=== PATIENT | female | born 1940 | race Caucasian/White ===

== ENCOUNTER 2016-09-07 09:21 | Emergency (ER) | payer MEDICARE, OTHER ==
[2016-09-07] MEDS ORDERED: ONDANSETRON 4 MG TAB.RAPDIS PO ONE (09:48)
[2016-09-07] MEDS ORDERED: NORMAL SALINE 1000 ML 500 ML IV ONE (09:48)
--- NOTE | 2016-09-07 09:51 | ER Document Report ---
ED Medical Screen (RME) - General Chief Complaint: Abdominal Pain Stated Complaint: ABDOMINAL PAIN Time Seen by Provider: 09/07/16 09:40 Notes: Patient is a 76-year-old female who comes in complaining of abdominal pressure, nausea. Patient started to feel this way yesterday. States that she feels like she could vomit but she can't. Last bowel movement was 2 days ago. Patient has a history of open cholecystectomy in the past. Denies abdominal pain or chest discomfort at this time. Denies any dysuria. Maybe fever at home. TRAVEL OUTSIDE OF THE [place] IN LAST 30 DAYS: No - HPI Onset: Yesterday Onset/Duration: Gradual Quality of pain: Fullness Exacerbated by: Denies Relieved by: Denies - Related Data Allergies/Adverse Reactions: No Known Allergies Allergy (Unverified 09/07/16 09:24) Past Medical History Renal/ Medical History: Denies: Hx Peritoneal Dialysis Past Surgical History: Reports: Hx Cholecystectomy Review of Systems - Review of Systems Constitutional: Fever, Malaise Gastrointestinal: See HPI Physical Exam - Vital signs Vitals: Temp Pulse Resp BP Pulse Ox 98.3 F 89 18 129/76 H 97 09/07/16 09:24 09/07/16 09:24 09/07/16 09:24 09/07/16 09:24 09/07/16 09:24 Interpretation: Normal - General General appearance: Alert In distress: Mild - appears uncomfortable Course - Vital Signs Vital signs: Temp Pulse Resp BP Pulse Ox 98.3 F 89 18 129/76 H 96 09/07/16 09:26 09/07/16 09:26 09/07/16 09:26 09/07/16 09:26 09/07/16 09:26
--- NOTE | 2016-09-07 10:01 | ER Document Report ---
ED GI/ - General Chief Complaint: Abdominal Pain Stated Complaint: ABDOMINAL PAIN Time Seen by Provider: 09/07/16 09:47 Mode of Arrival: Ambulatory Information source: Patient Notes: 76-year-old female with history of quadruple bypass presents with abdominal discomfort starting over the last 3-4 days. She states it was very mild initially starting more as generalized aches then becoming worse last night with aching lower abdominal pain. She has had nausea but no vomiting. Last bowel movement was 2 days ago and normal. No blood. Denies hematuria or urinary symptoms otherwise. No radiation of the discomfort or back pain associated. Further denies any chest pain or breathing difficulty. Highest temperature was 99F. TRAVEL OUTSIDE OF THE [place] IN LAST 30 DAYS: No - Related Data Allergies/Adverse Reactions: No Known Allergies Allergy (Unverified 09/07/16 09:24) Past Medical History - General Information source: Patient - Social History Smoking Status: Never Smoker Family History: Reviewed & Not Pertinent Patient has suicidal ideation: No Patient has homicidal ideation: No Renal/ Medical History: Denies: Hx Peritoneal Dialysis Past Surgical History: Reports: Hx Cholecystectomy Review of Systems - Review of Systems Constitutional: See HPI -: Yes All other systems reviewed and negative Physical Exam - Vital signs Vitals: Temp Pulse Resp BP Pulse Ox 98.3 F 89 18 129/76 H 97 09/07/16 09:24 09/07/16 09:24 09/07/16 09:24 09/07/16 09:24 09/07/16 09:24 Notes: GENERAL: VS as per nursing doc. Well-appearing, well-nourished and in no acute distress. HEAD: Atraumatic, normocephalic. EYES: Pupils equal round and reactive to light, extraocular movements intact, sclera anicteric, no conjunctival injection or discharge. ENT: Nares patent, oropharynx clear without exudates, moist mucous membranes. NECK: Normal range of motion, supple without lymphadenopathy. LUNGS: Breath sounds clear to auscultation bilaterally and equal. No wheezes rales or rhonchi. HEART: Regular rate and rhythm without murmurs. ABDOMEN: Soft, mild generalized lower abdominal tenderness slightly more in the right lower quadrant, present but hypoactive bowel sounds. No guarding, no rebound. No masses appreciated. No [place] sign. No pulsatile mass BACK: No CVA tenderness. EXTREMITIES: Normal range of motion, no calf tenderness, no edema. NEUROLOGICAL: Cranial nerves grossly intact. Normal speech. Normal sensory and motor exams. No gross cerebellar abnormalities. PSYCH: Normal mood, normal affect. SKIN: Warm, dry, normal turgor, no lesions noted. Course - Re-evaluation Re-evalutation: 09/07/16 14:55 I reevaluated the patient and her abdominal tenderness is gone. Specifically no right upper quadrant tenderness or Fox sign. I discussed with her the elevated liver function tests. This does not consume consistent with her lower abdominal discomfort but I recommended she get close follow-up on the liver function tests. She voices understanding as well as warning signs to watch for. She will get rechecked in the next 48 hours. - Vital Signs Vital signs: Temp Pulse Resp BP Pulse Ox 98.3 F 89 10 L 109/59 L 99 09/07/16 09:26 09/07/16 09:26 09/07/16 15:04 09/07/16 15:04 09/07/16 15:04 - Laboratory Result Diagrams: 09/07/16 10:23 09/07/16 10:23 Laboratory results interpreted by me: 09/07/16 09/07/16 09/07/16 10:23 10:23 13:41 Lymphocytes % 10.6 L BUN 24 H Glucose 140 H Direct Bilirubin 0.5 H AST 208 H ALT 243 H Alkaline Phosphatase 151 H Urine Ketones TRACE H Ur Leukocyte Esterase SMALL H - Diagnostic Test Radiology reviewed: Image reviewed, Reports reviewed - No acute abdominal process - Diagnostic Exam Abdominal Type of test: CT scan with contrast - Patient has diverticulosis without signs of diverticulitis and a small umbilical hernia. - EKG Interpretation by Me EKG shows normal: Sinus rhythm - Rate 78, normal sinus rhythm, nonspecific ST and T-wave changes, inferior Q waves Discharge - Discharge Clinical Impression: Abdominal pain Condition: Good Disposition: HOME, SELF-CARE Instructions: Abdominal Pain ([facility]) Additional Instructions: Return if worsening. Contact your physician for a recheck in the next 48 hours , sooner if worsening. Prescriptions: Hydrocodone/Acetaminophen [[place] 5-325 mg Tablet] 1 tab PO Q4HP PRN #14 tablet PRN Reason: For Pain Ondansetron [Zofran Odt 4 mg Tablet] 1 - 2 tab PO Q4H PRN #15 tab.rapdis PRN Reason: For Nausea/Vomiting
[2016-09-07] MEDS ORDERED: MORPHINE SULFATE 10 MG/ML INJ IV ONE (10:19)
[2016-09-07 10:47] LABS: ABSOLUTE MONOCYTES (AUTO) 1.2 10^3/uL (0.1-1.4); ABSOLUTE NEUT (AUTO) 6.8 10^3/uL (1.7-8.2); BASOPHILS % (AUTO) 0.2 % (0-2); EOSINOPHILS % (AUTO) 0.4 % (0-6); HEMATOCRIT 41.5 % (36.0-47.0); HEMOGLOBIN 14.2 g/dL (12.0-15.5); HGB HCT DIFFERENCE 1.1; LYMPHOCYTES % (AUTO) 10.6 % (13-45); MEAN CORPUSCULAR HEMOGLOBIN 30.7 pg (27.0-33.4); MEAN CORPUSCULAR HGB CONC 34.1 g/dL (32.0-36.0); MEAN CORPUSCULAR VOLUME 90 fl (80-97); MONOCYTES % (AUTO) 12.9 % (3-13); RED BLOOD COUNT 4.61 10^6/uL (3.72-5.28); RED CELL DISTRIBUTION WIDTH 12.7 % (11.5-14.0); SEGMENTED NEUTROPHILS % (AUTO) 75.9 % (42-78)
[2016-09-07 10:48] LABS: PROTHROMBIN TIME 13.2 SEC (11.4-15.4)
[2016-09-07 11:02] LABS: ALANINE AMINOTRANSFERASE 243 U/L (9-52); ALKALINE PHOSPHATASE 151 U/L (38-126); ANION GAP 12 (5-19); ASPARTATE AMINO TRANSFERASE 208 U/L (14-36); BILIRUBIN,DIRECT 0.5 mg/dL (0.0-0.4); BILIRUBIN,TOTAL 1.1 mg/dL (0.2-1.3); BLOOD UREA NITROGEN 24 mg/dL (7-20); CALCIUM 9.1 mg/dL (8.4-10.2); CARBON DIOXIDE 25 mmol/L (22-30); CHLORIDE 101 mmol/L (98-107); CREATINE KINASE 35 U/L (30-135); CREATININE RESULT 0.82 mg/dL (0.52-1.25); GLUCOSE 140 mg/dL (75-110); LIPASE 99.6 U/L (23-300); POTASSIUM 3.8 mmol/L (3.6-5.0); SODIUM 138.4 mmol/L (137-145); TOTAL PROTEIN 7.2 g/dL (6.3-8.2)
[2016-09-07 11:27] LABS: CREATINE KINASE MB < 0.22 ng/mL (<4.55); TROPONIN I < 0.012 ng/mL
[2016-09-07 14:03] LABS: APPEARANCE,URINE CLEAR; BILIRUBIN,URINE NEGATIVE (NEGATIVE); GLUCOSE, URINE NEGATIVE (NEGATIVE); KETONES,URINE TRACE mg/dL (NEGATIVE); LEUKOCYTE ESTERASE,URINE SMALL (NEGATIVE); NITRITE,URINE NEGATIVE (NEGATIVE); PROTEIN,URINE NEGATIVE (NEGATIVE); URINE SPECIFIC GRAVITY 1.012; UROBILINOGEN,URINE NEGATIVE mg/dL (<2.0)
[2016-09-07 15:10] VITALS: BP 109/59
--- NOTE | 2016-09-07 20:36 | EKG REPORT ---
SEVERITY:- ABNORMAL ECG - SINUS RHYTHM PROBABLE INFERIOR INFARCT, OLD BORDERLINE PROLONGED QT INTERVAL : Confirmed by: Carla Goldberg 07-Sep-2016 20:35:46
== END 2016-09-07 15:10 | disposition home or self-care (01) ==
LOC: ER 09:21
DX: R10.30 Lower abdominal pain, unspecified (principal); M79.1 Myalgia; Z95.1 Presence of aortocoronary bypass graft; Z90.49 Acquired absence of other specified parts of digestive tract
CPT/HCPCS: 93005; 99285; 96374; 36415; 82553; 82550; 83690; 85025; 85610; 80053; 81001; 84484; 74022; 74177; 93010; A9270; J2270; J7030; S0119